=== PATIENT | male | born 1975 | race Caucasian/White ===

== ENCOUNTER → 2023-10-05 | Outpatient (REF) | payer OTHER ==
[2023-10-05 19:36] LABS: CREATININE, URINE 77.7 MG/DL
[2023-10-05 20:06] LABS: MAU/CREAT RATIO 1037.3 MCG/MG (0.0-30.0)
== END ==
LOC: M LAB REF 17:50
PROVIDERS: ATTEND Nurse Practitioner Family
DX: E11.21 Type 2 diabetes mellitus with diabetic nephropathy (principal)